=== PATIENT | female | born 1965 ===

== ENCOUNTER 2016-11-24 20:12 | Emergency (ER) | payer OTHER ==
[2016-11-24 20:21] VITALS: BMI 44.9
[2016-11-24 20:24] VITALS: RESP 18
[2016-11-24 21:44] LABS: BASO % 0.5 % (0.0-2.0); EOS # 0.3 K/uL (0.0-0.7); EOS % 2.7 % (0.0-4.0); HEMATOCRIT 43.4 % (34.0-47.0); LYMPH # 2.2 K/uL (1.0-4.3); LYMPH % 23.5 % (20.0-40.0); MEAN CELL VOLUME 94.6 fl (81.0-99.0); MEAN CORPUSCULAR HEMOGLOBIN 31.3 pg (27.0-31.0); MEAN CORPUSCULAR HGB CONC 33.1 g/dL (33.0-37.0); MEAN PLATELET VOLUME 7.5 fl (7.2-11.7); MONO # 0.8 K/uL (0.0-0.8); MONO % 8.9 % (0.0-10.0); NEUT # 6.1 K/uL (1.8-7.0); NEUT % 64.4 % (50.0-75.0); RED CELL DISTRIBUTION WIDTH 13.1 % (11.5-14.5); WHITE BLOOD COUNT 9.4 K/uL (4.8-10.8)
--- NOTE | 2016-11-24 21:45 | ED PDOC ---
HPI: Neurologic - General Time Seen by Provider: 11/24/16 20:26 Chief Complaint (Nursing): Weakness/Neurological Deficit Chief Complaint (Provider): Paresthesias Source: patient Exam Limitations: no limitations - History of Present Illness Timing/Duration: other (x3 weeks intermittent, worse x2 days) Associated Symptoms: paresthesia (left sided). denies: denies symptoms, vision changes, weakness Allergies/Adverse Reactions: Allergies No Known Allergies Allergy (Unverified 11/24/16 20:21) Home Medications: Ambulatory Orders hydroCHLOROthiazide [Microzide] 12.5 mg PO DAILY 11/14/16 Additional Complaint(s): 51 year old female presents to ED with complaints of left sided paresthesias x3 weeks and has a past medical history of HTN, and borderline DM. Notes burning sensation to left arm and complete left leg. States that the paresthesias worsened in intensity and frequency x2 days and started when the patient started HCTZ for HTN. Also notes pressure-like feeling on top of left side of head intermittently. (-) weakness, numbness, and blurry vision. (+) tingling sensation occasionally on left side of chest. Patient was seen last week at [facility] for this same complaint and was told to follow up with PCP, and continued taking HCTZ. PCP: Sudheer Past Medical History Reviewed: Historical Data, Nursing Documentation, Vital Signs Vital Signs: Last Vital Signs Temp 98.9 F 11/24/16 20:21 Pulse 91 H 11/24/16 20:21 Resp 18 11/24/16 20:21 BP 149/85 11/24/16 20:21 Pulse Ox 98 11/24/16 20:21 - Medical History PMH: Diabetes (borderline), HTN Denies: No Chronic Diseases - Surgical History Surgical History: No Surg Hx - Family History Family History: States: Diabetes, Hypertension - Social History Current smoker - smoking cessation education provided: No Ex-Smoker (has not smoked in the last 12 months): No Alcohol: None Drugs: Denies - Immunization History Hx Tetanus Toxoid Vaccination: Yes Hx Influenza Vaccination: No Hx Pneumococcal Vaccination: No - Home Medications Home Medications: Ambulatory Orders Medication Instructions Recorded hydroCHLOROthiazide [Microzide] 12.5 mg PO DAILY 11/14/16 - Allergies Allergies/Adverse Reactions: Allergies Allergy/AdvReac Type Severity Reaction Status Date / Time No Known Allergies Allergy Unverified 11/24/16 20:21 Review of Systems ROS Statement: Except As Marked, All Systems Reviewed And Found Negative Eyes: Negative for: Vision Change Neurological: Positive for: Other (left sided paresthesias, pressure sensation on left side of head). Negative for: Weakness, Numbness Physical Exam - Reviewed Nursing Documentation Reviewed: Yes Vital Signs Reviewed: Yes - Physical Exam Appears: Positive for: Well, No Acute Distress Head Exam: Positive for: ATRAUMATIC, NORMOCEPHALIC Skin: Positive for: Warm, Dry Eye Exam: Positive for: EOMI, PERRL ENT: Negative for: Pharyngeal Erythema, Tonsillar Exudate Neck: Positive for: Painless ROM, Supple Cardiovascular/Chest: Positive for: Regular Rate, Rhythm. Negative for: Murmur Respiratory: Positive for: Normal Breath Sounds. Negative for: Wheezing, Respiratory Distress Gastrointestinal/Abdominal: Positive for: Normal Exam, Soft. Negative for: Tenderness Back: Positive for: Normal Inspection. Negative for: Vertebral Tenderness Extremity: Positive for: Normal ROM, Swelling (bilateral lower leg and pedal edema with pitting). Negative for: Calf Tenderness, Deformity Neurologic/Psych: Positive for: Alert, Oriented, Mood/Affect (anxious affect). Negative for: Motor/Sensory Deficits, Facial Droop - Laboratory Results Result Diagrams: 11/24/16 21:40 11/24/16 21:40 - ECG O2 Sat by Pulse Oximetry: 98 (RA) Pulse Ox Interpretation: Normal Medical Decision Making Medical Decision Makin Initial impression: unilateral paresthesias DDx: Cervical radiculopathy, electrolytic abnormality, peripheral neuropathy, unlikely central pathology Initial plan: * CT CERVICAL SPINE * CT HEAD * EKG * Labs * CPK * Magnesium * Phosphorus * TSH * Trop I * PTT/PT * UA EXAM: CT Head Without Intravenous Contrast CLINICAL HISTORY: 51 years old, female; Signs and symptoms; Weakness, extremity; Left; Patient HX : Pt. States: Hypertension; Additional info: Headache TECHNIQUE: Axial computed tomography images of the head/brain without intravenous contrast. This CT exam was performed using one or more of the following dose reduction techniques: automated exposure control, adjustment of the mA and/or kV according to patient size, and/or use of iterative reconstruction technique. Coronal and sagittal reformatted images were created and reviewed. EXAM DATE/TIME: 11/24/2016 9:00 PM COMPARISON: There are no prior studies for comparison. FINDINGS: Brain: Ventricles are normal in size and configuration. There is no midline shift. There are no intraaxial or extra-axial mass lesions or areas of hemorrhage. There are no abnormal fluid collections. Saba-white differentiation is maintained. Ventricles: See above. Bones: Cranial vault is intact. Soft tissues: unremarkable Sinuses: There is no acute sinusitis. There is a retention cyst in a left ethmoid air cell. Ears and mastoids: Middle ears and mastoids are unremarkable Orbits: Orbital contents are unremarkable. IMPRESSION: No acute intracranial abnormality Thank you for allowing us to participate in the care of your patient. Dictated and Authenticated by: Xiomara Cain MD 11/24/2016 10:14 PM Eastern Time ([place] & [place]) EXAM: CT Cervical Spine Without Intravenous Contrast CLINICAL HISTORY: 51 years old, female; Signs and symptoms; Other: Left arm, leg parathesias; Additional info: Left arm/leg parasthesias TECHNIQUE: Axial computed tomography images of the cervical spine without intravenous contrast. This CT exam was performed using one or more of the following dose reduction techniques : automated exposure control, adjustment of the mA and/or kV according to patient size, and/ or use of iterative reconstruction technique. Coronal and sagittal reformatted images were created and reviewed. EXAM DATE/TIME: 11/24/2016 9:01 PM COMPARISON: There are no prior studies for comparison. FINDINGS: Vertebrae: There is straightening of the cervical lordosis. There is no prevertebral soft tissue swelling. No fractures are visualized. There are degenerative changes at multiple levels. There is narrowing of the predental space. There are degenerative ossicle C1-2. There is mild disc space narrowing and osteophyte formation. There is narrowing of lower facet joints. Facet joints align anatomically.Spinous processes align in the expected fashion. Discs/spinal canal/neural foramina: See above. Soft tissues: unremarkable Thyroid: Thyroid is unremarkable Lung apices: Lung apices are clear Other findings: Airway is unremarkable IMPRESSION: Degenerative change, no fracture Thank you for allowing us to participate in the care of your patient. Dictated and Authenticated by: Xiomara Cain MD 11/24/2016 10:18 PM Eastern Time ([place] & [place]) Labs unremarkable Scribe Attestation: Documented by Nickie Means acting as a scribe for Lexy Hidalgo MD. MD Scribe Attestation: All medical record entries made by the Scribe were at my direction and personally dictated by me. I have reviewed the chart and agree that the record accurately reflects my personal performance of the history, physical exam, medical decision making, and the department course for this patient. I have also personally directed, reviewed, and agree with the discharge instructions and disposition. Disposition - Clinical Impression Clinical Impression: Adverse drug effect Counseled Patient/Family Regarding: Studies Performed, Diagnosis, Need For Followup - Disposition Referrals: Joycelyn Willard MD [Medical Doctor] - [facility] [Outside] Krzysztof Landry MD [Staff Provider] - (FOLLOW UP WITH NEUROLOGY FOR FURTHER EVALUATION.) Disposition: Routine/Home Disposition Time: 22:00 Condition: GOOD Additional Instructions: FOLLOW UP WITH YOUR DOCTOR BY THE END OF THE WEEK TO REVIEW YOUR MEDICATION. IF YOU ARE UNABLE TO SETUP APPOINTMENT WITH YOUR DOCTOR, CALL THE [facility] FOR ASSISTANCE MAKING AN URGENT APPOINTMENT WITH A PRIMARY CARE PHYSICIAN. Instructions: Paresthesia (ED)
[2016-11-24 21:54] LABS: ALB/GLOB RATIO 1.5 (1.0-2.1); ALKALINE PHOSPHATASE 80 U/L (38-126); ALT/SGPT 31 U/L (9-52); AST/SGOT 27 U/L (14-36); BILIRUBIN,TOTAL 0.3 mg/dl (0.2-1.3); BLOOD UREA NITROGEN 12 mg/dl (7-17); CALCIUM 9.6 mg/dL (8.4-10.2); CARBON DIOXIDE 28 mmol/L (22-30); CHLORIDE 100 mmol/L (98-107); GFR AFRICAN-AMERICAN > 60; GLUCOSE,RANDOM 93 mg/dL (65-105); MAGNESIUM 1.9 MG/DL (1.6-2.3); PHOSPHOROUS 3.5 mg/dl (2.5-4.5); POTASSIUM 3.5 MMOL/L (3.6-5.0); SODIUM 138 mmol/l (132-148)
[2016-11-24 22:05] LABS: PARTIAL THROMBOPLASTIN TIME 29.8 SECONDS (23.3-32.5)
--- NOTE | 2016-11-24 22:15 | CT ---
EXAM: CT Head Without Intravenous Contrast CLINICAL HISTORY: 51 years old, female; Signs and symptoms; Weakness, extremity; Left; Patient HX: Pt. States: Hypertension; Additional info: Headache TECHNIQUE: Axial computed tomography images of the head/brain without intravenous contrast. This CT exam was performed using one or more of the following dose reduction techniques: automated exposure control, adjustment of the mA and/or kV according to patient size, and/or use of iterative reconstruction technique. Coronal and sagittal reformatted images were created and reviewed. EXAM DATE/TIME: 11/24/2016 9:00 PM COMPARISON: There are no prior studies for comparison. FINDINGS: Brain: Ventricles are normal in size and configuration. There is no midline shift. There are no intra-axial or extra-axial mass lesions or areas of hemorrhage. There are no abnormal fluid collections. Saba-white differentiation is maintained. Ventricles: See above. Bones: Cranial vault is intact. Soft tissues: unremarkable Sinuses: There is no acute sinusitis. There is a retention cyst in a left ethmoid air cell. Ears and mastoids: Middle ears and mastoids are unremarkable Orbits: Orbital contents are unremarkable. IMPRESSION: No acute intracranial abnormality
--- NOTE | 2016-11-24 22:18 | CT ---
EXAM: CT Cervical Spine Without Intravenous Contrast CLINICAL HISTORY: 51 years old, female; Signs and symptoms; Other: Left arm, leg parathesias; Additional info: Left arm/leg parasthesias TECHNIQUE: Axial computed tomography images of the cervical spine without intravenous contrast. This CT exam was performed using one or more of the following dose reduction techniques: automated exposure control, adjustment of the mA and/or kV according to patient size, and/or use of iterative reconstruction technique. Coronal and sagittal reformatted images were created and reviewed. EXAM DATE/TIME: 11/24/2016 9:01 PM COMPARISON: There are no prior studies for comparison. FINDINGS: Vertebrae: There is straightening of the cervical lordosis. There is no prevertebral soft tissue swelling. No fractures are visualized. There are degenerative changes at multiple levels. There is narrowing of the predental space. There are degenerative ossicle C1-2. There is mild disc space narrowing and osteophyte formation. There is narrowing of lower facet joints. Facet joints align anatomically.Spinous processes align in the expected fashion. Discs/spinal canal/neural foramina: See above. Soft tissues: unremarkable Thyroid: Thyroid is unremarkable Lung apices: Lung apices are clear Other findings: Airway is unremarkable IMPRESSION: Degenerative change, no fracture
[2016-11-24 22:24] LABS: THYROID STIMULATING HORMONE 2.17 mIU/ML (0.46-4.68)
[2016-11-24 23:01] LABS: RBC URINE 12 /hpf (0-3); URINE BACTERIA FEW (<OCC); URINE BILIRUBIN NEGATIVE (NEGATIVE); URINE BLOOD MODERATE (NEGATIVE); URINE COLOR YELLOW (YELLOW); URINE GLUCOSE (UA) NEG (Normal); URINE KETONE NEGATIVE (NEGATIVE); URINE LEUKOCYTE ESTERASE NEG Leu/uL (Negative); URINE PROTEIN NEGATIVE (NEGATIVE); URINE UROBILINOGEN 0.2-1.0 mg/dL (0.2-1.0); WBC URINE 1 /hpf (0-5)
[2016-11-24 23:49] VITALS: BP 129/69; PULSE 80; TEMP 98; O2SAT 99
--- NOTE | 2016-11-25 16:11 | CARD ---
APPROVED REPORT EKG Measurement Heart [id number] UT [id number] <Conclusion> Normal sinus rhythm Possible Left atrial enlargement Left axis deviation Left ventricular hypertrophy Cannot rule out Septal infarct, age undetermined Abnormal ECG
== END 2016-11-24 23:49 | disposition home or self-care (01) ==
LOC: H.ER 20:12
DX: T88.7XXA Unspecified adverse effect of drug or medicament, initial encounter (principal); R20.9 Unspecified disturbances of skin sensation; R53.1 Weakness; I10 Essential (primary) hypertension; Z87.891 Personal history of nicotine dependence; R73.09 Other abnormal glucose

== ENCOUNTER 2018-04-11 12:55 | Emergency (ER) | payer OTHER ==
[2018-04-11 12:55] VITALS: BMI 44.9
[2018-04-11 13:10] VITALS: BP 128/92; PULSE 80; RESP 18; TEMP 97; O2SAT 97
--- NOTE | 2018-04-11 13:58 | ED PDOC ---
Lower Extremity Pain/Injury Chief Complaint (Provider): Lower Extremity Problem/Injury History Per: Patient History/Exam Limitations: no limitations Onset/Duration Of Symptoms: Other (x3 months) Current Symptoms Are (Timing): Still Present Additional Complaint(s): 52 year old female, with past med hx of HTN, presents to the ED complaining of intermittent left ankle pain for 3 weeks. Patient reports ankle is swollen. She states she had made an appointment with her doctor but was unable to be seen until the prompting ED visit. Patient denies taking medications for pain, calf pain or trauma. PMD: none <Cathleen Flynn - Last Filed: 04/11/18 15:30> <Aimee Oconnor - Last Filed: 04/16/18 13:32> Time Seen by Provider: 04/11/18 13:09 Chief Complaint (Nursing): Lower Extremity Problem/Injury Past Medical History Reviewed: Historical Data, Nursing Documentation, Vital Signs Vital Signs: Last Vital Signs Temp 97 F L 04/11/18 13:08 Pulse 80 04/11/18 13:08 Resp 18 04/11/18 13:08 BP 128/92 H 04/11/18 13:08 Pulse Ox 97 04/11/18 13:08 - Medical History PMH: Diabetes (borderline), HTN - Surgical History Surgical History: No Surg Hx - Family History Family History: States: Unknown Family Hx, Diabetes, Hypertension - Social History Current smoker - smoking cessation education provided: No Alcohol: None Drugs: Denies - Immunization History Hx Tetanus Toxoid Vaccination: Yes Hx Influenza Vaccination: No Hx Pneumococcal Vaccination: No <Cathleen Flynn - Last Filed: 04/11/18 15:30> Vital Signs: Last Vital Signs Temp 97 F L 04/11/18 13:08 Pulse 80 04/11/18 13:08 Resp 18 04/11/18 13:08 BP 128/92 H 04/11/18 13:08 Pulse Ox 97 04/11/18 15:32 <Aimee Oconnor - Last Filed: 04/16/18 13:32> - Home Medications Home Medications: Ambulatory Orders Medication Instructions Recorded RX: hydroCHLOROthiazide [Microzide] 12.5 mg PO DAILY 11/14/16 Ciprofloxacin 0.3% [Ciloxan 0.3% 2 drop OD Q2 #1 bottle 12/20/17 Ophth SOLN] RX: Naproxen [Naprosyn] 500 mg PO BID PRN #20 tablet 04/11/18 - Allergies Allergies/Adverse Reactions: Allergies Allergy/AdvReac Type Severity Reaction Status Date / Time No Known Allergies Allergy Unverified 04/11/18 13:08 Review of Systems ROS Statement: Except As Marked, All Systems Reviewed And Found Negative Musculoskeletal: Positive for: Other (Right ankle pain) <Cathleen Flynn - Last Filed: 04/11/18 15:30> Physical Exam - Reviewed Nursing Documentation Reviewed: Yes Vital Signs Reviewed: Yes - Physical Exam Appears: Positive for: Non-toxic, No Acute Distress Head Exam: Positive for: ATRAUMATIC, NORMAL INSPECTION, NORMOCEPHALIC Skin: Positive for: Normal Color, Warm, Dry Eye Exam: Positive for: Normal appearance Neck: Positive for: Normal, Painless ROM Cardiovascular/Chest: Positive for: Regular Rate, Rhythm. Negative for: Murmur Respiratory: Positive for: Normal Breath Sounds. Negative for: Wheezing, Respiratory Distress Extremity: Positive for: Normal ROM, Tenderness (left inferior medial malleolus), Other ((-) Roque's Sign). Negative for: Calf Tenderness Neurologic/Psych: Positive for: Alert, Oriented. Negative for: Motor/Sensory Deficits <Cathleen Flynn - Last Filed: 04/11/18 15:30> - ECG O2 Sat by Pulse Oximetry: 97 (RA) Pulse Ox Interpretation: Normal <Cathleen Flynn - Last Filed: 04/11/18 15:30> Medical Decision Making Medical Decision Making: Initial Impression: Left ankle pain Initial Plan: --Motrin 600mg PO --Left ankle X-ray XR without acute fracture or dislocation. [place] applied. Scribe Attestation: Documented by Buddy Orozco acting as a scribe for Cathleen ESTEVES. Provider Scribe Attestation: All medical record entries made by the Scribe were at my direction and personally dictated by me. I have reviewed the chart and agree that the record accurately reflects my personal performance of the history, physical exam, medi devaughn decision making, and the department course for this patient. I have also personally directed, reviewed, and agree with the discharge instructions and disposition. <Cathleen Flynn - Last Filed: 04/11/18 15:30> Disposition - Patient ED Disposition Is Patient to be Admitted: No Counseled Patient/Family Regarding: Diagnosis, Need For Followup, Rx Given - Disposition Disposition: Routine/Home Disposition Time: 15:31 <Cathleen Flynn - Last Filed: 04/11/18 15:30> <Aimee Oconnor - Last Filed: 04/16/18 13:32> - Clinical Impression Clinical Impression: Ankle pain - Disposition Referrals: Podiatry Clinic [Outside] Condition: STABLE Prescriptions: RX: Naproxen [Naprosyn] 500 mg PO BID PRN #20 tablet PRN Reason: Pain Instructions: Ankle Sprain Forms: [facility] ([place]), [facility] School/Work Excuse Print Language: TRISTANIAN Addendum Addendum: 04/16/18 13:32 reviewed PA chart and agree with assessment and plan. <Aimee Oconnor - Last Filed: 04/16/18 13:32>
--- NOTE | 2018-04-11 15:49 | RAD ---
Date of service: 04/11/2018 PROCEDURE: Left Ankle Radiographs. HISTORY: medial ankle pain, no trauma COMPARISON: None FINDINGS: BONES: No acute fracture. Plantar calcaneal spur and incidental finding. JOINTS: Normal. No osteoarthritis. Ankle mortise maintained. Talar dome intact SOFT TISSUES: Diffuse soft tissue swelling. OTHER FINDINGS: None. IMPRESSION: Soft tissue swelling without acute articular or osseous abnormality.
== END 2018-04-11 15:40 | disposition home or self-care (01) ==
LOC: H.ER 12:55
DX: M25.572 Pain in left ankle and joints of left foot (principal); I10 Essential (primary) hypertension